=== PATIENT | female | born 1980 | race Caucasian/White ===

== ENCOUNTER 2017-06-24 03:08 | Emergency (ER) | payer OTHER, SELFPAY ==
[2017-06-24] MEDS ORDERED: Ketorolac Tromethamine 60 MG/2 ML VIAL ONE (03:42)
[2017-06-24] MEDS ORDERED: traMADol HCl 50 MG TAB ONE (04:34)
[2017-06-24] MEDS ORDERED: Ondansetron ODT 8 MG TAB ONE (04:34)
== END 2017-06-24 04:49 | disposition home or self-care (01) ==
LOC: ERS 03:08
DX: G89.29 Other chronic pain (principal); M54.5 Low back pain; E66.9 Obesity, unspecified; J45.909 Unspecified asthma, uncomplicated; F41.9 Anxiety disorder, unspecified; F90.9 Attention-deficit hyperactivity disorder, unspecified type; Z87.891 Personal history of nicotine dependence
CPT/HCPCS: 96372; J1885

== ENCOUNTER 2021-11-07 03:18 | Emergency (ER) | payer SELFPAY ==
[2021-11-07] MEDS ORDERED: Ketorolac Tromethamine 30 MG/ML VIAL ONE (04:20)
[2021-11-07] MEDS ORDERED: Ondansetron ODT 4 MG TAB ONE (04:24)
[2021-11-07] MEDS ORDERED: HYDROcodone/Acetaminophen 10/325 mg Tablet ONE (04:24)
== END 2021-11-07 04:40 | disposition home or self-care (01) ==
LOC: ERS 03:18
DX: M54.41 Lumbago with sciatica, right side (principal); E66.9 Obesity, unspecified; J45.909 Unspecified asthma, uncomplicated; Z87.891 Personal history of nicotine dependence; Z79.899 Other long term (current) drug therapy
CPT/HCPCS: 96372; 99283; J1885; Q0162

== ENCOUNTER 2022-03-27 06:56 | Emergency (ER) | payer SELFPAY ==
[2022-03-27] MEDS ORDERED: Magnesium 2 GM/50 ML BAG (IN WATER) ONE (07:27)
[2022-03-27] MEDS ORDERED: Metoclopramide HCl 10 MG/2 ML VIAL ONE (07:27)
[2022-03-27] MEDS ORDERED: Acetaminophen 500 MG TAB ONE (07:28)
[2022-03-27] MEDS ORDERED: diphenhydrAMINE 50 MG/ML VIAL ONE (07:29)
[2022-03-27] MEDS ORDERED: Ketorolac Tromethamine 30 MG/ML VIAL ONE (08:22)
[2022-03-27] MEDS ORDERED: methylPREDNISolone Sod Succ/PF 125 MG/2 ML VIAL ONE (09:25)
[2022-03-27] MEDS ORDERED: Meclizine HCl 25 MG TAB ONE (09:25)
[2022-03-27] MEDS ORDERED: VALPROATE SODIUM IVPB SCH (10:15)
[2022-03-27] MEDS ORDERED: SODIUM CHLORIDE 0.9% IVPB SCH (10:15)
[2022-03-27] MEDS ORDERED: Ketamine 50 MG/ML (10ML VIAL) ONE (11:46)
[2022-03-27] MEDS ORDERED: Ondansetron PF 4 MG/2 ML Vial ONE (12:45)
[2022-03-27] MEDS ORDERED: Lorazepam 2 MG/ML VIAL ONE (12:45)
== END 2022-03-27 13:23 | disposition home or self-care (01) ==
LOC: ERS 06:56
DX: R51.9 Headache, unspecified (principal); G89.29 Other chronic pain; M25.559 Pain in unspecified hip; E66.9 Obesity, unspecified; Z87.891 Personal history of nicotine dependence
CPT/HCPCS: 70450; 93005; 96365; 96366; 96375; J1200; J1885; J2060; J2405; J2765; J2930; J3475; J3490

== ENCOUNTER 2022-07-11 12:01 | Emergency (ER) | payer SELFPAY ==
[2022-07-11] MEDS ORDERED: Boostrix 0.5 ML (Tdap) VIAL (>/=7 yrs of age) ONE (12:40)
[2022-07-11] MEDS ORDERED: Ketorolac Tromethamine 30 MG/ML VIAL ONE (12:40)
[2022-07-11] MEDS ORDERED: Lidocaine 1% (PF) 30 ML VIAL ONE (12:42)
[2022-07-11] MEDS ORDERED: HYDROcodone/Acetaminophen 5/325 mg Tablet ONE (14:45)
== END 2022-07-11 14:51 | disposition home or self-care (01) ==
LOC: ERS 12:01
DX: S61.211A Laceration without foreign body of left index finger without damage to nail, initial encounter (principal); S61.002A Unspecified open wound of left thumb without damage to nail, initial encounter; R55 Syncope and collapse; W26.0XXA Contact with knife, initial encounter; Z87.891 Personal history of nicotine dependence; Z23 Encounter for immunization
CPT/HCPCS: 12001; 90471; 90715; 93005; 96372; J1885; J2001

== ENCOUNTER 2024-03-19 05:47 | Day surgery (SDC) | payer OTHER ==
[2024-03-18 13:19] VITALS: BMI 37.7
[2024-03-19] MEDS ORDERED: Lidocaine 2% PF 5 ML VIAL ONE (06:06)
[2024-03-19] MEDS ORDERED: Betamet Acet/Betamet Na Ph 30 MG/5 ML VIAL ONE (06:06)
[2024-03-19] MEDS ORDERED: Iopamidol 10 ML FS ONE (06:06)
[2024-03-19] MEDS ORDERED: Midazolam HCl 2 mg/2 ml Vial ONE (06:53)
[2024-03-19] MEDS ORDERED: fentaNYL 50 mcg/mL 1 mL Vial ONE ×4 (07:02→08:09)
[2024-03-19] MEDS ORDERED: Lidocaine 1% PF 5 ML VIAL ONE ×2 (07:02→07:42)
[2024-03-19] MEDS ORDERED: PROPOFOL 0 ML ONE (07:02)
[2024-03-19] MEDS ORDERED: PHENYLEPHRINE-NS 100 MCG/ML 10 ML SYRINGE ONE (07:09)
[2024-03-19] MEDS ORDERED: Dexamethasone 20 MG/5 ML VIAL ONE (07:42)
[2024-03-19] MEDS ORDERED: Ondansetron PF 4 MG/2 ML Vial ONE ×2 (07:42→08:51)
[2024-03-19] MEDS ORDERED: PROPOFOL 20 ML ONE (07:43)
[2024-03-19] MEDS ORDERED: HYDROcodone/Acetaminophen 5/325 mg Tablet ONE (08:51)
== END 2024-03-19 09:50 | disposition home or self-care (01) ==
LOC: SDC 05:47
PROVIDERS: ATTEND Student in an Organized Health Care Education/Training Program
PROC: 3E0U33Z Introduction of Anti-inflammatory into Joints, Percutaneous Approach (ICD-10-PCS; principal; 2024-03-19)
DX: M16.11 Unilateral primary osteoarthritis, right hip (principal); M87.059 Idiopathic aseptic necrosis of unspecified femur; J45.909 Unspecified asthma, uncomplicated; F41.9 Anxiety disorder, unspecified; Z79.899 Other long term (current) drug therapy
CPT/HCPCS: J0702; J1100; J2250; J2405; J2704; J3010; Q9966

== ENCOUNTER 2024-05-19 15:57 | Emergency (ER) | payer OTHER ==
[2024-05-19] MEDS ORDERED: Ketorolac Tromethamine 30 MG (1 mL) VIAL ONE ×2 (16:53→16:55)
[2024-05-19] MEDS ORDERED: Acetaminophen 500 MG TAB ONE (16:55)
[2024-05-19] MEDS ORDERED: Ondansetron ODT 4 MG TAB ONE (17:33)
== END 2024-05-19 19:48 | disposition home or self-care (01) ==
LOC: ERS 15:57
DX: M25.511 Pain in right shoulder (principal); M25.551 Pain in right hip; M54.6 Pain in thoracic spine; Z87.891 Personal history of nicotine dependence; Z90.49 Acquired absence of other specified parts of digestive tract; V49.40XA Driver injured in collision with unspecified motor vehicles in traffic accident, initial encounter
CPT/HCPCS: 72072; 72170; 96372; 99283; J1885; Q0162

== ENCOUNTER 2024-05-20 11:44 | Emergency (ER) | payer OTHER ==
[2024-05-20 12:28] LABS: #Basophils 0.04 10x3/uL (0.0-0.2); %Basophils 0.7 % (0.0-1.0); %Eosinophils 2.1 % (0.0-10.0); %Lymphocytes 43.5 % (21.0-51.0); %Monocytes 8.6 % (0.0-10.0); %Neutrophils 44.9 % (42.0-75.0); Hematocrit 38.6 % (36.0-47.0); Hemoglobin 12.4 g/dL (12.0-16.0); Mean Corpuscular HGB CONC 32.1 g/dL (32.0-36.0); Mean Corpuscular Hemoglobin 28.1 pg (27.0-31.0); Mean Corpuscular Volume 87.3 fL (78.0-98.0); Mean Platelet Volume 10.2 fL (7.4-10.4); Platelet Count 252 10x3/uL (130-400); RBC Distribution Width 14.1 % (11.5-14.5); Red Blood Cell (RBC) Count 4.42 mill/uL (4.20-5.40)
[2024-05-20 12:40] LABS: BHCG - Serum Negative (NEGATIVE); Pregs Control Background? CLEAR/WHITE (CLR/WHITE); Pregs Control Bar Appear? YES (CONTROL BAR)
[2024-05-20 12:43] LABS: ALT (SGPT) 58 U/L (8-55); AST (SGOT) 36 U/L (5-34); Albumin 3.4 g/dL (3.5-5.0); Alkaline Phosphatase 218 U/L (40-110); Anion Gap 15 mmol/L (10-20); BUN (Urea Nitrogen) 11 mg/dL (7.0-18.7); Bilirubin, Total 0.8 mg/dL (0.2-1.2); Calc. Creatinine Clearance 0 mL/min (70-130); Carbon Dioxide 23 mmol/L (22-29); Chloride 107 mmol/L (98-107); Estimated GFR 97; Globulin 3.1 g/dL (2.4-3.5); Glucose 94 mg/dL (70-105); INR-International Normal Ratio 0.9; Lipase 10 U/L (8-78); PTT 29.4 sec (22.9-36.1); Potassium 3.8 mmol/L (3.5-5.1); Protein, Total 6.5 g/dL (6.0-8.3); Prothrombin Time 12.1 sec (12.0-14.7); Sodium 141 mmol/L (136-145)
[2024-05-20 12:48] LABS: Troponin I Less than 0.010 ng/mL (< 0.028)
[2024-05-20] MEDS ORDERED: Morphine 4 MG/ML VIAL ONE (14:12)
[2024-05-20] MEDS ORDERED: Lidocaine 4% Patch ONE (14:13)
[2024-05-20] MEDS ORDERED: Methocarbamol 1 GM in Sodium Chloride 0.9% 100 ML IVPB SCH (14:30)
[2024-05-20] MEDS ORDERED: Iopamidol 370 76% 100 ML VIAL ONE (15:07)
== END 2024-05-20 16:22 | disposition home or self-care (01) ==
LOC: ERS 11:44
DX: S06.0X0A Concussion without loss of consciousness, initial encounter (principal); S13.4XXA Sprain of ligaments of cervical spine, initial encounter; R55 Syncope and collapse; I27.82 Chronic pulmonary embolism; V43.54XA Car driver injured in collision with van in traffic accident, initial encounter
CPT/HCPCS: 36415; 70450; 71045; 71275; 72125; 80053; 83690; 84484; 84703; 85025; 85610; 85730; 86850; 86900; 86901; 93005; 94760; 96374; 96375; J2272; J2800; Q9967